=== PATIENT | female | born 1965 | race Caucasian/White ===

== ENCOUNTER → 2017-11-29 16:01 | Outpatient (CLI) | payer MEDICAID, SELFPAY ==
[2017-11-29 19:19] LABS: Amphetamine/Metha Screen,Urine Negative ng/mL (<1000); Barbiturates Screen,Urine Negative ng/mL (<200); Benzodiazepines Screen,Urine Positive ng/mL (200); Cannabinoid Screen,Urine Negative ng/mL (<50); Cocaine Screen,Urine Negative ng/g (<300); Methadone Screen,Urine Negative ng/mL (<300); Opiate Screen,Urine Negative ng/mL (<300); Phencyclidine Screen,Urine Negative ng/mL (<25)
== END ==
PROVIDERS: Visit Provider Nurse Practitioner Family
DX: Z79.899 Other long term (current) drug therapy (principal)
CPT/HCPCS: 80305

== ENCOUNTER → 2021-01-11 14:15 | Outpatient (CLI) | payer OTHER, SELFPAY ==
[2021-01-11 14:27] LABS: Basophils # 0.1 K/mm3 (0-0.2); Basophils % 0.5 % (0.1-2.0); Eosinophils # 0.3 K/mm3 (0.0-0.4); Eosinophils % 2.7 % (0.1-12.0); Hematocrit 40.2 % (37.0-47.0); Hemoglobin 13.4 g/dL (12.2-16.2); Lymphocytes # 3.2 K/mm3 (0.7-4.5); Lymphocytes % 28.1 % (10-50); Mean Corpuscular HGB Conc 33.3 g/dL (31.8-35.4); Mean Corpuscular Hemoglobin 29.9 pg (27.0-31.2); Mean Corpuscular Volume 89.9 fl (81-99); Mean Platelet Volume 9.6 fl (7.4-10.4); Monocytes # 0.4 K/mm3 (0.1-1.0); Neutrophils # 7.5 K/mm3 (1.8-7.8); Neutrophils % 65.7 % (37.0-80.0); Platelet Count 277 K/mm3 (142-424); Red Blood Count 4.48 M/mm3 (4.20-5.40); Red Cell Distribution Width 13.5 % (11.5-17.5); White Blood Count 11.5 K/mm3 (4.8-10.8)
[2021-01-11 14:38] LABS: Chloride 107 mmol/L (98-107)
[2021-01-11 14:39] LABS: Potassium 4.5 mmoL/L (3.5-5.1); Sodium 141 mmol/L (136-145)
[2021-01-11 14:41] LABS: Alanine Aminotransferase 28 U/L (12-78); Alkaline Phosphatase 121 U/L (38-126); Anion Gap 8.5 mEq/L (5-15); Aspartate Amino Transferase 38 U/L (14-36); Bilirubin,Total 0.4 mg/dl (0.2-1.3); Blood Urea Nitrogen 8 mg/dl (7-17); Carbon Dioxide 30 mmol/L (22.0-30.0); Estimated Glomerular Filt Rate 74 ml/min (>60); GFR (African American) 90 ML/MIN (>60)
[2021-01-11 14:42] LABS: Albumin Level 4.5 g/dl (3.5-5.0); Albumin/Globulin Ratio 1.7 (1.1-1.8); Calcium 9.9 mg/dl (8.4-10.2); Chol/HDL Ratio 4.6 (1-3.5); Cholesterol 270 mg/dl (140-200); Globulin 2.7 g/dL (1.3-3.2); Glucose 109 mg/dl (74-100); HDL Cholesterol 59 mg/dl (40-60); Total Protein,Serum 7.2 g/dl (6.3-8.2); Triglycerides 245 mg/dl (30-150); VLDL Cholesterol 49 mg/dL (0-40)
[2021-01-11 14:58] LABS: 25-OH Vitamin D, Total 24.1 ng/mL (30-100)
[2021-01-11 15:00] LABS: T4 (Thyroxine) 10.1 ug/dl (5.53-11.0)
[2021-01-11 15:13] LABS: Thyroid Stimulating Hormone 1.07 uIU/mL (0.465-4.68)
[2021-01-12 13:11] LABS: Hemoglobin A1C 5.7 % (4.0-6.0)
== END ==
PROVIDERS: Visit Provider Nurse Practitioner Family
DX: R51.9 Headache, unspecified (principal); R53.83 Other fatigue; R73.09 Other abnormal glucose; E55.9 Vitamin D deficiency, unspecified
CPT/HCPCS: 80053; 80061; 82306; 83036; 84436; 84443; 85025

== ENCOUNTER 2021-05-06 18:03 | Emergency (ER) | payer OTHER, SELFPAY ==
[2021-05-06 18:03] VITALS: BP 147/88; PULSE 107; RESP 21; TEMP 36.9; O2SAT 97; BMI 28.3
--- NOTE | 2021-05-06 18:33 | HMH.EDUTC ---
[facility] Disposition Clinical Impression: Exposure to COVID-19 virus Disposition: Home, Self-Care Condition on Discharge: Good Instructions: How to Care for Someone with COVID-19, DI for COVID-19 (Suspected or Confirmed ) Additional Instructions: covid swab sent to lab call later for results. self isolate until test results are known neg Referrals: Nguyen Sykes APRN [Primary Care Provider] - Time of Disposition: 18:40 Medical Decision Making - Justin Inquiry Pt receiving controlled substance: No Vital Signs: 05/06/21 18:03 Temperature 98.5 F Temperature Source Oral Pulse Rate [Apical] 107 H Respiratory Rate 21 Blood Pressure [Right Arm] 147/88 H Blood Pressure Mean [Right Arm] 107 Blood Pressure Source [Right Arm] Automatic Cuff Blood Pressure Position [Right Arm] Supine 02 Sat by Pulse Oximetry 97 Oxygen Delivery Method Room Air Orders (Tests/Meds): ORDERS Category Date Time Status Covid-19 Nasal PCR ([facility]) Routine Lab 05/06/21 18:10 Received [facility] HPI - General Chief complaint: Urgent Treatment Center Stated complaint: covid test Time Seen by Provider: 05/06/21 18:33 Mode of Arrival: Ambulatory Source of Information: Patient Limitations: No Limitations Description of Symptoms (Recalled from Triage Doc. by RN): covid exposure HEENT Symptoms (Recalled from RN notes): No Resp Symptoms (Recalled from RN notes): No Skin Symptoms (Recalled from RN notes): No MS Symptoms (Recalled from RN notes): No Functional Status (Recalled from RN notes): na - History of Present Illness Provider Complaint: 55 yr old female presents for covid test. pt states exposer but no symptoms. - Related Data Home Medications Medication Instructions Recorded Confirmed aspirin 81 mg tablet,delayed 81 mg PO DAILY 06/30/20 01/11/21 release buspirone 15 mg tablet 15 mg PO BID 06/30/20 01/11/21 famotidine 20 mg tablet 20 mg PO BID tab 06/30/20 01/11/21 tizanidine 4 mg tablet 4 mg PO TID tab 06/30/20 01/11/21 hydrocodone 5 mg-acetaminophen 325 1 tab PO TID tab 11/17/20 01/11/21 mg tablet Previous Rx's Medication Instructions Recorded ergocalciferol (vitamin D2) 1,250 See Rx Instructions .ROUTE 04/07/21 mcg (50,000 unit) capsule .COMPLEX #12 cap atorvastatin 80 mg tablet See Rx Instructions .ROUTE 04/14/21 .COMPLEX #90 tab Allergies Allergy/AdvReac Type Severity Reaction Status Date / Time codeine Allergy Intermediate I-RASH Verified 01/11/21 12:59 - Worker's Comp Is this a Worker's Comp case?: No Is this an [facility] Worker's Comp?: No Is this a [place] Worker's Comp?: No [facility] History - Hepatitis A Screen Drug use history?: No High risk sexual behaviors?: No History of sexually transmitted infection?: No Currently employed?: No Childcare worker?: No Do you have indoor plumbing?: Yes Do you have electricity?: Yes Attestation statement:: This patient has been screened for Hepatitis A risk factors. I have reviewed the patient's past medical history: Yes Medical History: Reports:: Depression Comment: BIPOLAR,HYPERCHOLESTEROLEMIA Other Surgeries: Yes: Appendectomy, Cardiac Catheterization, Hysterectomy-Total Amputation: No Fractures: No Comment: HEART CATH, KIDNEY STENTS X 2 - Social History Smoking Status: Current every day smoker Tobacco Type: cigarettes # Packs/Day (cigarettes): 1 Alcohol Intake: never Substance Use Type: denies use Occupational Status: employed - Psychiatric History Pschychiatric History:: Reports:: Depression Family Hx:: Kidney Disease, Stroke ROS Obtained: Yes Systems reviewed as appropriate & no additional complaints - Constitutional Constitutional: Reports system reviewed and no additional complaints, except as docu, Denies fever(s) - Eyes Eyes: Reports system reviewed and no additional complaints, except as docu, Denies blurry vision - ENT Ears, Nose, Mouth, and Throat: Reports system reviewed and no additional complaints, except as docu, Denies
[2021-05-06 18:47] VITALS: BP 147/88; PULSE 107; RESP 16; TEMP 36.9; O2SAT 99
== END 2021-05-06 18:48 | disposition home or self-care (01) ==
PROVIDERS: Emergency Provider Nurse Practitioner Family; PCP Nurse Practitioner Family
DX: Z20.822 Contact with and (suspected) exposure to COVID-19 (principal); F33.1 Major depressive disorder, recurrent, moderate; F31.9 Bipolar disorder, unspecified; F17.210 Nicotine dependence, cigarettes, uncomplicated
CPT/HCPCS: 99202; G0463; U0003

== ENCOUNTER → 2022-06-25 11:00 | Outpatient (CLI) | payer OTHER, SELFPAY ==
[2022-06-25 15:22] LABS: MANUAL DIFFERENTIAL MANUAL DIFFERENTIAL (MANUAL DIFF)
[2022-06-25 15:47] LABS: Alanine Aminotransferase 22 U/L (12-78); Albumin Level 4.2 g/dl (3.5-5.0); Albumin/Globulin Ratio 1.5 (1.1-1.8); Alkaline Phosphatase 161 U/L (38-126); Anion Gap 14.5 mEq/L (5-15); Aspartate Amino Transferase 32 U/L (14-36); Bilirubin,Total 0.2 mg/dl (0.2-1.3); Blood Urea Nitrogen 11 mg/dl (7-17); Calcium 9.3 mg/dl (8.4-10.2); Carbon Dioxide 27 mmol/L (22.0-30.0); Chloride 103 mmol/L (98-107); Estimated Glomerular Filt Rate 103 ml/min (>60); GFR (African American) 125 ML/MIN (>60); Globulin 2.8 g/dL (1.3-3.2); Glucose 105 mg/dl (74-100); Potassium 4.5 mmoL/L (3.5-5.1); Sodium 140 mmol/L (136-145)
[2022-06-25 15:53] LABS: Basophils # 0.1 K/mm3 (0-0.2); Basophils % 0.7 % (0.1-2.0); Eosinophils # 0.2 K/mm3 (0.0-0.4); Eosinophils % 2.2 % (0.1-12.0); Hematocrit 45.9 % (37.0-47.0); Hemoglobin 14.1 g/dL (12.2-16.2); Lymphocytes # 2.7 K/mm3 (0.7-4.5); Lymphocytes % 27.1 % (10-50); Mean Corpuscular HGB Conc 30.7 g/dL (31.8-35.4); Mean Corpuscular Hemoglobin 29.3 pg (27.0-31.2); Mean Corpuscular Volume 95.4 fl (81-99); Monocytes # 0.4 K/mm3 (0.1-1.0); Neutrophils # 6.7 K/mm3 (1.8-7.8); Neutrophils % 66.1 % (37.0-80.0); Platelet Count 316 K/mm3 (142-424); Red Blood Count 4.81 M/mm3 (4.20-5.40); Red Cell Distribution Width 13.9 % (11.5-17.5); White Blood Count 10.1 K/mm3 (4.8-10.8)
[2022-06-25 16:34] LABS: Iron 80 ug/dL (37-170)
[2022-06-25 16:35] LABS: Vitamin B12 318 pg/mL (239-931)
[2022-06-25 16:43] LABS: Total Iron Binding Capacity 279 ug/dL (265-497)
[2022-06-25 17:10] LABS: Ferritin 40.5 ng/ml (11.1-264)
[2022-06-25 23:39] LABS: Eosinophils % 1 % (0-3); Lymphocytes % 24 % (10-50); Monocytes % 4 % (2-9); Neutrophils % 71 % (42-76); Total Cells Counted 100
[2022-06-25 23:40] LABS: Burr Cells 1+; Ovalocytes 1+; Platelet Estimate Normal
[2022-06-26 10:19] LABS: Gamma Glutamyl Transpeptidase 32 U/L (12-43)
[2022-06-26 10:32] LABS: Intact Parathyroid Hormone 70.2 pg/mL (7.5-53.5)
== END ==
PROVIDERS: PCP Nurse Practitioner Family; Visit Provider Nurse Practitioner Family
DX: M79.605 Pain in left leg (principal); M79.604 Pain in right leg; R53.83 Other fatigue; R74.8 Abnormal levels of other serum enzymes; Z13.9 Encounter for screening, unspecified
CPT/HCPCS: 80053; 82607; 82728; 82977; 83036; 83540; 83550; 83970; 85007; 85014; 85018; 85048; 85049

== ENCOUNTER → 2022-06-25 19:38 | Outpatient (CLI) | payer OTHER, SELFPAY | PROVIDERS: PCP Physician Assistant; Visit Provider Physician Assistant | DX: M79.662 Pain in left lower leg (principal); M79.661 Pain in right lower leg ==

== ENCOUNTER 2023-04-02 17:23 | Emergency (ER) | payer MEDICARE, MEDICAID, SELFPAY ==
[2023-04-02 17:23] VITALS: BP 144/89; PULSE 88; RESP 18; TEMP 36.6; O2SAT 96; BMI 29.6
--- NOTE | 2023-04-02 18:09 | EXP.UTC ---
Discharge Plan Disposition Patient Disposition: Home, Self-Care Condition: Good Prescriptions Prescriptions: New valacyclovir 1 gram tablet 1,000 mg PO Q8H 7 Days Qty: 21 0RF prednisone 10 mg tablet 10 mg PO BID 5 Days Qty: 10 0RF No Action aspirin 81 mg tablet,delayed release (DR/EC) 81 mg PO DAILY desloratadine [Clarinex] 5 mg tablet 5 mg PO DAILY Qty: 30 2RF hydrocodone-acetaminophen [Roy] 5-325 mg tablet 1 tab PO TID Rx Instructions: pain management atorvastatin 80 mg tablet 80 mg PO DAILY Qty: 90 3RF Ozempic 0.25 mg or 0.5 mg(2 mg/1.5 mL) pen injector 0.25 mg SQ WEEKLY Qty: 1.5 2RF Rx Instructions: for 4 doses Slow Fe 142 mg (45 mg iron) tablet extended release 142 mg PO DAILY Qty: 90 3RF cyanocobalamin (vitamin B-12) 5,000 mcg tablet, sublingual 5,000 mcg sublingual DAILY Qty: 90 3RF metformin 500 mg tablet 500 mg PO DAILY Qty: 90 3RF famotidine 20 mg tablet 20 mg PO DAILY Qty: 90 3RF Referrals Follow up/Referrals: Patricia Spencer PA [Primary Care Provider] - See instructions Activity Restrictions/Add. Instructions Additional Instructions/Restrictions: Follow up with Family Doctor if no improvement or any worsening of symptoms Follow up with Eye Doctor if you start having any vision difficulty or blurry vision Take medication as prescribed Return if needed Straight to ER if any life threatening symptoms Clinical Impressions Clinical Impression: Shingles Instructions Patient Instructions: DI for Shingles, Shingles, Acyclovir Discharge ED Provider: Jennifer Peters [facility] General Stated complaint: rash Mode of Arrival: Ambulatory Source of Information: Patient Limitations: No Limitations Time Seen by Provider: 04/02/23 18:10 Description of Symptoms (Recalled from Triage Doc. by RN): Rash to face for 3 days. HEENT Symptoms (Recalled from RN notes): No Resp Symptoms (Recalled from RN notes): No Skin Symptoms (Recalled from RN notes): Yes MS Symptoms (Recalled from RN notes): No Functional Status (Recalled from RN notes): wnl History of Present Illness Provider Complaint: Patient states that she has been having a rash on the left side of her nose for about 3 days that is has continued to spread over the left side of her nose onto her cheek area States that she was worried that it was going to get into her eye so she came in States that she is not sure what it its it just feels weird It tingles itches and chase Related Data Home Medications Medication Instructions Recorded Confirmed aspirin 81 mg tablet,delayed 81 mg PO DAILY 06/30/20 06/25/22 release hydrocodone 5 mg-acetaminophen 325 1 tab PO TID pain 11/17/20 06/25/22 mg tablet (Roy) Previous Rx's Medication Instructions Recorded atorvastatin 80 mg tablet 80 mg PO DAILY #90 tabs 04/13/22 desloratadine 5 mg tablet 5 mg PO DAILY #30 tabs 06/25/22 (Clarinex) cyanocobalamin (vitamin B-12) 5,000 mcg sublingual DAILY #90 tabs 06/29/22 5,000 mcg sublingual tablet ferrous sulfate 142 mg (45 mg 142 mg PO DAILY #90 tabs 06/29/22 iron) tablet,extended release (Slow Fe) semaglutide 0.25 mg or 0.5 mg (2 0.25 mg (0.2 mL) SQ WEEKLY #1.5 mL 06/29/22 mg/1.5 mL) subcutaneous pen injector (Ozempic) metformin 500 mg tablet 500 mg PO DAILY #90 tabs 07/02/22 famotidine 20 mg tablet 20 mg PO DAILY #90 tabs 02/12/23 prednisone 10 mg tablet 10 mg PO BID 5 days #10 tabs 04/02/23 valacyclovir 1 gram tablet 1,000 mg PO Q8H 7 days #21 tabs 04/02/23 Allergies Allergy/AdvReac Type Severity Reaction Status Date / Time codeine Allergy Intermediate I-RASH Verified 06/25/22 08:35 Worker's Comp Is this a Worker's Comp case?: No [facility] Disclaimer: The information contained in this section may have been updated after the patient was seen, as this information can be updated by other users. Social History (Reviewed 06/25/22 @ 08:35 by Ashley Franco
[2023-04-02 18:48] VITALS: BP 144/89; PULSE 88; RESP 18; TEMP 36.6; O2SAT 96
== END 2023-04-02 18:49 | disposition home or self-care (01) ==
PROVIDERS: Emergency Provider Nurse Practitioner; PCP Physician Assistant
DX: B02.9 Zoster without complications (principal); F17.210 Nicotine dependence, cigarettes, uncomplicated
CPT/HCPCS: 99212; 99214; G0463

== ENCOUNTER 2023-08-21 09:33 | Emergency (ER) | payer MEDICARE, MEDICAID, SELFPAY ==
[2023-08-21 10:00] VITALS: BP 134/84; PULSE 89; RESP 18; TEMP 36.6; O2SAT 98; BMI 29.6
--- NOTE | 2023-08-21 10:06 | EXP.UTC ---
Discharge Plan Disposition Patient Disposition: Home, Self-Care Condition: Good Prescriptions Prescriptions: New cephalexin 500 mg capsule 500 mg PO QID Qty: 40 0RF mupirocin 2 % ointment 1 applic topical TID 7 Days Qty: 15 0RF methylprednisolone 4 mg Tablets,Dose Pack 4 mg PO DIRECTED Qty: 21 0RF No Action aspirin 81 mg tablet,delayed release (DR/EC) 81 mg PO DAILY desloratadine [Clarinex] 5 mg tablet 5 mg PO DAILY Qty: 30 2RF hydrocodone-acetaminophen [[place]] 5-325 mg tablet 1 tab PO TID Rx Instructions: pain management cyanocobalamin (vitamin B-12) 5,000 mcg tablet, sublingual 5,000 mcg sublingual DAILY Qty: 90 3RF famotidine 20 mg tablet 20 mg PO DAILY Qty: 90 3RF cyclobenzaprine 10 mg tablet 10 mg PO TID atorvastatin 80 mg tablet 80 mg PO DAILY Referrals Follow up/Referrals: Patricia Spencer PA [Primary Care Provider] - See instructions Activity Restrictions/Add. Instructions Additional Instructions/Restrictions: Take the medications as directed. Apply the topical medication as directed. Follow up with your regular doctor. GO TO THE ER FOR ANY WORSENING SYMPTOMS OR CONCERNS Clinical Impressions Clinical Impression: Folliculitis Instructions Patient Instructions: Cephalexin, Folliculitis, DI for Folliculitis Discharge ED Provider: Jay Jay Ballard [facility] General Stated complaint: rash Time Seen by Provider: 08/21/23 10:06 History of Present Illness Provider Complaint: She states that for the past 4 days she has had had a rash on her body, arms and legs. Related Data Home Medications Medication Instructions Recorded Confirmed aspirin 81 mg tablet,delayed 81 mg PO DAILY 06/30/20 08/21/23 release hydrocodone 5 mg-acetaminophen 325 1 tab PO TID pain 11/17/20 08/21/23 mg tablet ([place]) atorvastatin 80 mg tablet 80 mg PO DAILY Cholesterol 08/21/23 08/21/23 cyclobenzaprine 10 mg tablet 10 mg PO TID Pain 08/21/23 08/21/23 Previous Rx's Medication Instructions Recorded desloratadine 5 mg tablet 5 mg PO DAILY #30 tabs 06/25/22 (Clarinex) cyanocobalamin (vitamin B-12) 5,000 mcg sublingual DAILY #90 tabs 06/29/22 5,000 mcg sublingual tablet famotidine 20 mg tablet 20 mg PO DAILY #90 tabs 02/12/23 cephalexin 500 mg capsule 500 mg PO QID #40 caps 08/21/23 methylprednisolone 4 mg tablets in 4 mg PO DIRECTED #21 tabs 08/21/23 a dose pack mupirocin 2 % topical ointment 1 applic topical TID 7 days #15 08/21/23 grams Allergies Allergy/AdvReac Type Severity Reaction Status Date / Time codeine Allergy Intermediate I-RASH Verified 08/21/23 10:13 [facility] Disclaimer: The information contained in this section may have been updated after the patient was seen, as this information can be updated by other users. Social History Smoking Status: Current every day smoker tobacco type: cigarettes packs per day: 1 alcohol intake: never substance use type: denies use current occupational status: employed Travel in the last 8 weeks: None ROS Obtained: Yes All systems reviewed & no additional complaints except as documented Constitutional Constitutional: Denies chills and Denies fever(s) Eyes Eyes: Denies eye discharge ENT Ears, Nose, Mouth, and Throat: Denies dizziness, Denies otalgia and Denies sore throat Cardiovascular Cardiovascular: Denies chest pain Respiratory Respiratory: Denies shortness of breath, Denies chest congestion, Denies cough, Denies stridor and Denies wheezing Gastrointestinal Gastrointestingal: Denies nausea or vomiting Musculoskeletal Musculoskeletal: Reports system reviewed and no additional complaints, except as documented and Denies arthralgias Integumentary/Breasts Skin/Breast: Reports as per HPI and Reports rash Neurologic Neurologic: Denies dizziness and Denies paresthesias Allergic/Immunologic Allergic/
[2023-08-21 10:45] VITALS: BP 134/84; PULSE 89; RESP 18; TEMP 36.6; O2SAT 98
== END 2023-08-21 10:45 | disposition home or self-care (01) ==
PROVIDERS: Emergency Provider Nurse Practitioner Family; PCP Physician Assistant
DX: L73.9 Follicular disorder, unspecified (principal); F17.210 Nicotine dependence, cigarettes, uncomplicated
CPT/HCPCS: 99212; 99214; G0463

== ENCOUNTER 2024-02-05 18:00 | Outpatient (CLI) | payer MEDICARE, MEDICAID, SELFPAY ==
[2024-02-05 18:47] LABS: Basophils # 0.1 K/mm3 (0-0.2); Basophils % 0.3 % (0.1-2.0); Eosinophils # 0.2 K/mm3 (0.0-0.4); Hematocrit 47.6 % (37.0-47.0); Hemoglobin 14.8 g/dL (12.2-16.2); Lymphocytes # 1.1 K/mm3 (0.7-4.5); Lymphocytes % 6.5 % (10-50); Mean Corpuscular Hemoglobin 29.9 pg (27.0-31.2); Mean Corpuscular Volume 96.5 fl (81-99); Mean Platelet Volume 9.9 fl (7.4-10.4); Monocytes # 0.6 K/mm3 (0.1-1.0); Monocytes % 3.2 % (1.7-9.3); Neutrophils # 15.8 K/mm3 (1.8-7.8); Platelet Count 317 K/mm3 (142-424); Red Blood Count 4.94 M/mm3 (4.20-5.40); Red Cell Distribution Width 14.2 % (11.5-17.5); White Blood Count 17.7 K/mm3 (4.8-10.8)
[2024-02-05 18:50] LABS: MANUAL DIFFERENTIAL MANUAL DIFFERENTIAL (MANUAL DIFF)
[2024-02-05 18:54] LABS: Alanine Aminotransferase 29 U/L (12-78); Albumin Level 4.4 g/dl (3.5-5.0); Albumin/Globulin Ratio 1.5 (1.1-1.8); Alkaline Phosphatase 140 U/L (38-126); Amylase 60 U/L (30-110); Anion Gap 11.8 mEq/L (5-15); Aspartate Amino Transferase 38 U/L (14-36); Bilirubin,Total 0.6 mg/dl (0.2-1.3); Blood Urea Nitrogen 14 mg/dl (7-17); Carbon Dioxide 28 mmol/L (22.0-30.0); Chloride 105 mmol/L (98-107); Estimated Glomerular Filt Rate 86 ml/min (>60); GFR (African American) 104 ML/MIN (>60); Glucose 116 mg/dl (74-100); HDL Cholesterol 55 mg/dl (40-60); Lipase 99 U/L (23-300); Potassium 4.8 mmoL/L (3.5-5.1); Sodium 140 mmol/L (136-145); Total Protein,Serum 7.4 g/dl (6.3-8.2); Triglycerides 318 mg/dl (30-150); VLDL Cholesterol 64 mg/dL (0-40)
[2024-02-05 19:02] LABS: Cholesterol 383 mg/dl (140-200)
[2024-02-05 19:05] LABS: Direct LDL Cholesterol 208.31 mg/dL (100-129)
[2024-02-05 19:06] LABS: Troponin I < 0.01 ng/ml (0.00-0.034)
[2024-02-05 19:22] LABS: Eosinophils % 2 % (0-3); Lymphocytes % 6 % (10-50); Monocytes % 2 % (2-9); Neutrophils % 90 % (42-76); Total Cells Counted 100
[2024-02-05 19:23] LABS: Platelet Estimate Normal; RBC Morphology Normal
[2024-02-05 19:24] LABS: Erythrocyte Sedimentation Rate 17 mm/hr (0-30)
[2024-02-05 19:45] LABS: Hemoglobin A1C 6.2 % (4.0-6.0)
== END 2024-02-05 23:59 | disposition home or self-care (01) ==
LOC: LAB.DROPOF 02-06 10:03
PROVIDERS: PCP Family Medicine; Visit Provider Family Medicine
DX: R11.10 Vomiting, unspecified; R00.0 Tachycardia, unspecified; E86.0 Dehydration; R19.7 Diarrhea, unspecified; Z79.899 Other long term (current) drug therapy
CPT/HCPCS: 80053; 80061; 82150; 83036; 83690; 84484; 85007; 85025; 85651

== ENCOUNTER 2024-02-14 08:09 | Outpatient (CLI) | payer MEDICARE, MEDICAID, SELFPAY | END 2024-02-14 23:59 | disposition home or self-care (01) | LOC: RT 08:10 | PROVIDERS: PCP Physician Assistant; Visit Provider Family Medicine | DX: R00.0 Tachycardia, unspecified (principal) | CPT/HCPCS: 93270 ==

== ENCOUNTER 2024-02-26 08:20 | Emergency (ER) | payer MEDICARE, MEDICAID, SELFPAY ==
[2024-02-26 08:40] VITALS: BP 154/89; PULSE 81; RESP 18; TEMP 36.7; O2SAT 97; BMI 29.0
--- NOTE | 2024-02-26 09:09 | ED_ITS ---
Discharge Plan Disposition Patient Disposition: Home, Self-Care Condition: Good Prescriptions Prescriptions: New Tobradex ST 0.3-0.05 % drops,suspension 1 - 2 drp ophthalmic (eye) Q6H Qty: 10 0RF Rx Instructions: in both eyes as directed No Action metformin 500 mg tablet 500 mg PO DAILY hydrocodone-acetaminophen 5-325 mg tablet 1 tab PO DAILY ondansetron HCl 4 mg tablet 4 mg PO DAILY famotidine 20 mg tablet 20 mg PO DAILY ezetimibe 10 mg tablet 10 mg PO DAILY cyclobenzaprine 10 mg tablet 10 mg PO DAILY Referrals Follow up/Referrals: Patricia Spencer PA [Primary Care Provider] - See instructions Activity Restrictions/Add. Instructions Additional Instructions/Restrictions: Use drops as directed Follow up with your Eye Doctor if no improvement or any worseningo of symptoms Straight to ER if any life threatening symptoms Clinical Impressions Clinical Impression: Conjunctivitis Instructions Patient Instructions: DI for Conjunctivitis, How to Instill Eye Drops Discharge ED Provider: Jennifer Peters [facility] General Stated complaint: eye pain swollen Mode of Arrival: Ambulatory Source of Information: Patient Limitations: No Limitations Time Seen by Provider: 02/26/24 09:09 Description of Symptoms (Recalled from Triage Doc. by RN): PATIENT C/O REDNESS, SWELLING, DRAINAGE (MATTED THIS MORNING), ITCHING AND BURNING TO BILATERAL EYES X 3 DAYS HEENT Symptoms (Recalled from RN notes): Yes Resp Symptoms (Recalled from RN notes): No Skin Symptoms (Recalled from RN notes): No MS Symptoms (Recalled from RN notes): No Functional Status (Recalled from RN notes): WNL History of Present Illness Provider Complaint: Patient states that she has been having redness, draining and itchying of both eyes States that it has continued to get worse and this morning she woke up with them matted shut this morning states that drainage started clear but no is yellowish in color so she came in to get checked Related Data Home Medications Medication Instructions Recorded Confirmed cyclobenzaprine 10 mg tablet 10 mg PO DAILY 02/26/24 02/26/24 ezetimibe 10 mg tablet 10 mg PO DAILY 02/26/24 02/26/24 famotidine 20 mg tablet 20 mg PO DAILY 02/26/24 02/26/24 hydrocodone 5 mg-acetaminophen 325 1 tab PO DAILY 02/26/24 02/26/24 mg tablet metformin 500 mg tablet 500 mg PO DAILY 02/26/24 02/26/24 ondansetron HCl 4 mg tablet 4 mg PO DAILY 02/26/24 02/26/24 Previous Rx's Medication Instructions Recorded tobramycin 0.3 %-dexamethasone 1 - 2 drp ophthalmic (eye) Q6H #10 02/26/24 0.05 % eye drops,suspension mL (Tobradex ST) Allergies Allergy/AdvReac Type Severity Reaction Status Date / Time codeine Allergy Intermediate I-RASH Verified 02/05/24 09:46 Worker's Comp Is this a Worker's Comp case?: No [facility] Disclaimer: The information contained in this section may have been updated after the patient was seen, as this information can be updated by other users. Medical History (Updated 02/26/24 @ 09:26 by Jennifer Peters APRN) Depression Anxiety Kidney stone History of gastroesophageal reflux (GERD) Hyperlipidemia Surgical History (Updated 02/26/24 @ 08:53 by Aisha Eason RN) History of tubal ligation History of hysterectomy History of cholecystectomy History of appendectomy Social History Smoking Status: Current every day smoker tobacco type: cigarettes packs per day: 1 alcohol intake: never substance use type: denies use current occupational status: employed Travel in the last 8 weeks: None ROS Obtained: Yes All systems reviewed & no additional complaints except as documented and Yes Systems reviewed as appropriate & no additional complaints except as documented Constitutional Constitutional: Reports system reviewed and no additional complaints, except as documented and Reports as per HPI Eyes Eyes: Reports system reviewed and no additional complaints, except as documented, Reports as per HPI, Denies blurry vision, Reports eye discharge, Reports irritation and Reports itchy eyes ENT Ears, Nose, Mouth, and Throat: Reports system reviewed and no additional complaints, except as documented and Reports as per HPI Cardiovascular Cardiovascular: Reports system reviewed and no additional complaints, except as documented and Reports as per HPI Allergic/Immunologic Allergic/Immunologic: Reports itchy eyes Physical Exam General General appearance: alert and in no apparent distress Eye Eye exam: Present conjunctival redness (bilateral), discharge (bilateral) and other (matting particles noted in lashes with mild puffiness noted) Respiratory Respiratory exam: Present normal lung sounds bilaterally; Absent respiratory distress or wheezes Cardiovascular Cardiovascular exam: Present regular rate, normal rhythm and normal heart sounds Abdominal Exam Abdominal exam: Present soft and normal bowel sounds; Absent distention or tenderness Neurological Exam Neurological exam: Present alert, oriented X3 and normal gait Medical Decision Making Justin Inquiry Pt receiving controlled substance: No Justin was queried for this patient: No Vital Signs: 02/26/24 08:40 Temperature 98.1 F Temperature Source Oral Pulse Rate [Left Brachial] 81 Respiratory Rate 18 Blood Pressure [Left Arm] 154/89 H Blood Pressure Mean [Left Arm] 110 Blood Pressure Source [Left Arm] Automatic Cuff Blood Pressure Position [Left Arm] Sitting 02 Sat by Pulse Oximetry 97 Oxygen Delivery Method Room Air
[2024-02-26 09:16] VITALS: BP 154/89; PULSE 81; RESP 18; TEMP 36.7; O2SAT 97
== END 2024-02-26 09:33 | disposition home or self-care (01) ==
PROVIDERS: Emergency Provider Nurse Practitioner; PCP Physician Assistant
DX: H10.33 Unspecified acute conjunctivitis, bilateral (principal)
CPT/HCPCS: 99212; 99214; G0463

== ENCOUNTER 2024-04-30 11:53 | Outpatient (CLI) | payer MEDICARE, MEDICAID, SELFPAY ==
--- NOTE | 2024-04-30 | XR_ITS ---
FINAL REPORT CLINICAL HISTORY: LOW BACK PAIN FINDINGS: AP, lateral, and oblique views of the lumbar spine were obtained. There is no acute fracture or acute malalignment. Vertebral body height is preserved. There is mild multilevel degenerative disc disease, most pronounced at L5-S1. No acute paraspinal abnormality is identified. IMPRESSION: No acute osseous abnormalities lumbar spine. Reviewed, Interpreted and Dictated by Yuli Bermudez MD Transcribed by Deepali Ronquillo Authenticated and [facility]
== END 2024-04-30 23:59 | disposition home or self-care (01) ==
LOC: LAB 11:57
PROVIDERS: PCP Physician Assistant; Visit Provider Physician Assistant Medical
DX: M47.816 Spondylosis without myelopathy or radiculopathy, lumbar region (principal)
CPT/HCPCS: 72110

== ENCOUNTER 2024-08-17 11:15 | Outpatient (CLI) | payer MEDICARE, MEDICAID, SELFPAY ==
[2024-08-17 18:07] LABS: Basophils # 0.1 K/mm3 (0-0.2); Basophils % 0.8 % (0.1-2.0); Eosinophils # 0.2 K/mm3 (0.0-0.4); Eosinophils % 1.7 % (0.1-12.0); Hematocrit 42.9 % (37.0-47.0); Hemoglobin 14.4 g/dL (12.2-16.2); Lymphocytes # 2.9 K/mm3 (0.7-4.5); Lymphocytes % 22.5 % (10-50); Mean Corpuscular HGB Conc 33.5 g/dL (31.8-35.4); Mean Corpuscular Hemoglobin 29.5 pg (27.0-31.2); Mean Corpuscular Volume 88.1 fl (81-99); Mean Platelet Volume 9.5 fl (7.4-10.4); Monocytes # 0.6 K/mm3 (0.1-1.0); Monocytes % 4.3 % (1.7-9.3); Neutrophils # 9.2 K/mm3 (1.8-7.8); Neutrophils % 70.7 % (37.0-80.0); Platelet Count 311 K/mm3 (142-424); Red Blood Count 4.88 M/mm3 (4.20-5.40); Red Cell Distribution Width 14.4 % (11.5-17.5)
[2024-08-17 18:33] LABS: Creatinine,Urine Random 35 mg/dL (Not Estab.)
[2024-08-17 18:35] LABS: Microalbumin/Creatinine Ratio 47.4
[2024-08-17 18:47] LABS: Hemoglobin A1C 6.1 % (4.0-6.0)
[2024-08-17 19:07] LABS: Albumin Level 4.3 g/dl (3.5-5.0); Chloride 109 mmol/L (98-107); Sodium 139 mmol/L (136-145)
[2024-08-17 19:08] LABS: Potassium 4.3 mmoL/L (3.5-5.1)
[2024-08-17 19:09] LABS: 25-OH Vitamin D, Total 17.5 ng/mL (30-100)
[2024-08-17 19:10] LABS: Alanine Aminotransferase 21 U/L (12-78); Anion Gap 12.3 mEq/L (5-15); Aspartate Amino Transferase 31 U/L (14-36); Blood Urea Nitrogen 11 mg/dl (7-17); Carbon Dioxide 22 mmol/L (22.0-30.0); Estimated Glomerular Filt Rate 102 ml/min (>60); GFR (African American) 124 ML/MIN (>60)
[2024-08-17 19:11] LABS: Albumin/Globulin Ratio 1.5 (1.1-1.8); Alkaline Phosphatase 151 U/L (38-126); Bilirubin,Total 0.5 mg/dl (0.2-1.3); Calcium 9.4 mg/dl (8.4-10.2); Globulin 2.8 g/dL (1.3-3.2); Glucose 116 mg/dl (74-100); Total Protein,Serum 7.1 g/dl (6.3-8.2)
== END 2024-08-17 23:59 | disposition home or self-care (01) ==
LOC: LAB.DROPOF 08-18 12:09
PROVIDERS: PCP Internal Medicine; Visit Provider Internal Medicine
DX: E86.0 Dehydration (principal); R05.9 Cough, unspecified; E55.9 Vitamin D deficiency, unspecified; Z13.1 Encounter for screening for diabetes mellitus; R00.0 Tachycardia, unspecified
CPT/HCPCS: 80053; 82043; 82306; 82570; 83036; 85025; 87635